=== PATIENT | male | born 1960 | race Caucasian/White ===

== ENCOUNTER 2019-09-09 13:27 | Inpatient (IN) | payer SELFPAY ==
[~2019-09-09] VITALS: Ht 182.9 cm; Wt 81.0 kg
[2019-09-09] MEDS ORDERED: ampicillin/sulbac 3gm/NS 100ml 100 ML IV STA (15:02)
[2019-09-09] MEDS ORDERED: potassium Cl 20 mEq SR tablet PO PRN ×2 (16:15)
[2019-09-09] MEDS ORDERED: HYDROcodone/acetaminophen 5mg/325mg tablet PO PRN (16:15)
[2019-09-09] MEDS ORDERED: ondansetron/PF 4mg/2ml inj IV PRN (16:15)
[2019-09-09] MEDS ORDERED: HYDROcodone/acetaminophen 10/325mg tab PO PRN (16:15)
[2019-09-09] MEDS ORDERED: magnesium hydroxide 30ml (MOM) UD suspension PO PRN (16:15)
[2019-09-09] MEDS ORDERED: morphine 2 MG/ML inj. syringe IV PRN ×2 (16:15)
[2019-09-09] MEDS ORDERED: magnesium 2GM in 50ml NS 50 ML IV PRN (16:15)
[2019-09-09] MEDS ORDERED: acetaminophen 325mg tablet PO PRN ×2 (16:15)
[2019-09-09] MEDS ORDERED: mag hydrox/Alum hydrox/simeth 30ml oral suspension PO PRN (16:15)
[2019-09-09] MEDS ORDERED: magnesium Cl slow-release 64mg tablet PO PRN (16:15)
[2019-09-09] MEDS ORDERED: magnesium 4gm in 100ml NS 100 ML IV PRN (16:15)
[2019-09-09] MEDS ORDERED: potassium CL 10mEq/100ml bag 100 ML IV PRN ×2 (16:15)
[2019-09-09 17:20] VITALS: BP 160/113
[2019-09-09] MEDS: normal saline 1000ml 1,000 ML IV SCH (17:26)
--- NOTE | 2019-09-09 18:08 | NUR ---
Problems reprioritized. Patient report given, questions answered & plan of care reviewed with TIGRE Lazar.
--- NOTE | 2019-09-09 19:00 | NUR ---
Patient in room [facility]. I have received report from Amira Barragan and had the opportunity to ask questions and assume patient care. Addendum: 09/09/19 at 1901 by Cady Soto RN Amended: Links added.
[2019-09-09 20:00] VITALS: BP 175/78
[2019-09-09] MEDS: K and/or MAG REPLACEMENT MC SCH (20:00)
[2019-09-09] MEDS: heparin, porcine 5000 units/ml vial SQ SCH (20:56)
[2019-09-09] MEDS ORDERED: temazepam 15mg capsule PO PRN (21:00)
[2019-09-09] MEDS: doxycycline inj 100 MG in normal saline 100ml IV soln 100 ML IV SCH (21:19)
[2019-09-09 23:00] VITALS: BP 139/69
--- NOTE | 2019-09-09 23:28 | NUR ---
pt does not take medications at home. he is aware that he needs to follow up with his primary Dr regarding his blood pressure elevations. current bp is 139/69. Addendum: 09/09/19 at 2330 by Cady Soto RN Amended: Links added.
--- NOTE | 2019-09-10 01:00 | NUR ---
pt resting eyes closed without changes.
--- NOTE | 2019-09-10 02:00 | NUR ---
moved from room 325b to 357A at this time. pt tolerated well. no complaints.
[2019-09-10] MEDS: normal saline 1000ml 1,000 ML IV SCH ×2 (02:13→04:14)
[2019-09-10] MEDS ORDERED: NO HOME MEDS (02:39)
--- NOTE | 2019-09-10 03:05 | NUR ---
resting eyes closed without changes.
[2019-09-10 05:24] LABS: BASOPHILS # (AUTO) 0.1 X10'3 (0-0.2); BASOPHILS % (AUTO) 0.5 % (0-1); EOSINOPHILS # (AUTO) 0.1 X10'3 (0-0.9); EOSINOPHILS % (AUTO) 0.9 % (0-6); HEMATOCRIT 49.6 % (42.0-52.0); HEMOGLOBIN 16.8 g/dl (14.0-17.9); LYMPHOCYTES # (AUTO) 2.3 X10'3 (1.1-4.8); LYMPHOCYTES % (AUTO) 21.4 % (21-51); MEAN CORPUSCULAR HEMOGLOBIN 32.3 PG (27.0-31.0); MEAN CORPUSCULAR HGB CONC 33.9 g/dL (33.0-36.5); MEAN CORPUSCULAR VOLUME 95.3 FL (78-98); MEAN PLATELET VOLUME 8.9 FL (7.4-10.4); MONOCYTES # (AUTO) 1.3 X10'3 (0-0.9); MONOCYTES % (AUTO) 11.8 % (2-12); NEUTROPHILS % (AUTO) 65.4 % (42-75); PLATELET COUNT 277 X10'3 (140-440); RED CELL DISTRIBUTION WIDTH 13.4 % (11.5-14.5); WHITE BLOOD COUNT 10.7 X10'3 (4.5-11.0)
[2019-09-10 05:44] LABS: ALANINE AMINOTRANSFERASE 11 U/L (12-78); ALBUMIN 3.5 G/DL (3.4-5.0); ALKALINE PHOSPHATASE 73 IU/L (46-116); ANION GAP 9 (8-16); ASPARTATE AMINO TRANSFERASE 12 U/L (10-37); BILIRUBIN,TOTAL 0.5 MG/DL (0.1-1.0); BLOOD UREA NITROGEN 9 MG/DL (7-18); BUN/CREATININE RATIO 8.4 (5.4-32.0); CHLORIDE 107 MMOL/L (99-107); CREATININE 1.07 MG/DL (0.60-1.10); GLUCOSE 103 MG/DL (70-104); MAGNESIUM 1.9 MG/DL (1.5-2.4); SODIUM 140 MMOL/L (135-145); TOTAL CARBON DIOXIDE 23.6 MMOL/L (24-32); TOTAL PROTEIN 7.1 G/DL (6.4-8.2); eGFR 70 ML/MIN
[2019-09-10 06:00] VITALS: BP 156/61
--- NOTE | 2019-09-10 06:30 | NUR ---
Problems reprioritized. Patient report given, questions answered & plan of care reviewed with Amira Barragan. Student documentation: I have reviewed and agree with all interventions, assessments performed and documented by Padmini myers Rn student.Student Medication Administration: For this medication-pass time frame, all medication were reviewed, dispensed, administered and documented per hospital policy by Padmini myers Rn student. Addendum: 09/10/19 at 0708 by Cady Soto RN Amended: Links added.
[2019-09-10] MEDS ORDERED: pantoprazole 40mg Tablet.DR PO SCH (07:30)
[2019-09-10] MEDS ORDERED: nicotine 14mg patch - 24hr TD SCH (08:00)
[2019-09-10] MEDS: K and/or MAG REPLACEMENT MC SCH (08:00)
[2019-09-10] MEDS: doxycycline inj 100 MG in normal saline 100ml IV soln 100 ML IV SCH (08:42)
[2019-09-10] MEDS: heparin, porcine 5000 units/ml vial SQ SCH (08:42)
[2019-09-10] MEDS ORDERED: TETanus/Pertussis (Acell)/Diphther VAC/PF (Tdap-Adult) 0.5ml syringe IMVAC ONE (12:00)
[2019-09-10] MEDS ORDERED: DOXY100C PO (12:36)
[2019-09-10] MEDS ORDERED: LISI-600 PO (12:44)
--- NOTE | 2019-09-10 13:49 | NUR ---
Patient discharged home via family and taken from unit via ambulation with [facility] staff. Patient alert, oriented and in no apparent distress at time of discharge. PIV removed with cannula intact. Patient took all belongings with him at time of discharge. Discharge instructions discussed with patient and he was encouraged to follow up with a dentist and to establish care with a PCP. Patient stated an understanding of these instructions. Patient new medications were sent into [facility] pharmacy in [place] per patient request. He was also given a prescription for a blood pressure medication due to the patients blood pressure being elevated while here.
== END 2019-09-10 13:46 | disposition home or self-care (01) | DRG 603 ==
LOC: ER 13:29 → ED HOLD 16:13 → SUR 3N 17:00
PROVIDERS: ADMIT Internal Medicine; ATTEND Family Medicine
PROC: 3E0234Z Introduction of Serum, Toxoid and Vaccine into Muscle, Percutaneous Approach (ICD-10-PCS; principal; 2019-09-10)
DX: L03.211 Cellulitis of face (principal); K04.7 Periapical abscess without sinus; F12.90 Cannabis use, unspecified, uncomplicated; F17.210 Nicotine dependence, cigarettes, uncomplicated; J44.9 Chronic obstructive pulmonary disease, unspecified; R03.0 Elevated blood-pressure reading, without diagnosis of hypertension; Z23 Encounter for immunization
CPT/HCPCS: 36415; 80053; 83605; 83735; 85025; 87040; 87081; 90715; 99285; G0378; J0295; J1644; J3490; J7030